=== PATIENT | male | born 1955 | race African-American/Black ===

== ENCOUNTER 2016-10-27 13:33 | Emergency (ER) | payer SELFPAY ==
[~2016-10-27] VITALS: Ht 182.9 cm; Wt 75.0 kg
[2016-10-27] MEDS ORDERED: TETANUS, DIPHTHERIA, PERTUSSIS VAC/PF 0.5ML (>7YR OLD) IM ONE (16:30)
[2016-10-27] MEDS ORDERED: KETOROLAC 30MG/ML VIAL IM ONE (16:30)
[2016-10-27] MEDS ORDERED: CEFAZOLIN 1000MG PREMIX 50 ML IV ONE (17:45)
[2016-10-27 18:30] VITALS: BP 138/88
== END 2016-10-27 19:26 | disposition home or self-care (01) ==
LOC: ER 13:33
DX: S62.605A Fracture of unspecified phalanx of left ring finger, initial encounter for closed fracture (principal); S61.305A Unspecified open wound of left ring finger with damage to nail, initial encounter; W45.8XXA Other foreign body or object entering through skin, initial encounter; Y93.89 Activity, other specified; Y92.89 Other specified places as the place of occurrence of the external cause; Y99.8 Other external cause status
CPT/HCPCS: 29130; 73140; 90471; 90715; 96365; 96372; 99284; J0690; J1885; Z7610